=== PATIENT | female | born 1990 | race Caucasian/White ===

== ENCOUNTER 2017-02-27 18:16 | Emergency (ER) | payer OTHER ==
[2017-02-27 18:28] VITALS: BP 122/80; PULSE 89; RESP 20; TEMP 98.2
--- NOTE | 2017-02-27 18:34 | ED ---
General Adult HPI - General Chief complaint: Needlestick/Exposure Stated complaint: Needlestick-[facility] Time Seen by Provider: 02/27/17 18:24 Source: patient, RN notes reviewed Mode of arrival: ambulatory Limitations: no limitations - History of Present Illness Initial comments: 26-year-old female presents emergency Department chief complaint of needle stick to the right fifth digit. Patient states it happened at work today. Patient states that her tetanus. Patient states she cleaned it out and rinsed it. Denies any pain or discomfort at this time.Patient denies any recent fever , chills, shortness of breath, chest pain, back pain, abdominal pain, nausea vomiting, numbness or tingling, dysuria or hematuria, constipation or diarrhea, headaches or visual changes, or any other current symptoms. - Related Data Allergies Allergy/AdvReac Type Severity Reaction Status Date / Time No Known Allergies Allergy Verified 02/27/17 18:28 Review of Systems ROS Statement: Those systems with pertinent positive or pertinent negative responses have been documented in the HPI. ROS Other: All systems not noted in ROS Statement are negative. Past Medical History Past Medical History: No Reported History History of Any Multi-Drug Resistant Organisms: None Reported Past Surgical History: No Surgical Hx Reported Past Psychological History: No Psychological Hx Reported Smoking Status: Never smoker Past Alcohol Use History: Occasional Past Drug Use History: None Reported General Exam Limitations: no limitations General appearance: alert, in no apparent distress ENT exam: Present: normal exam, mucous membranes moist Neck exam: Present: normal inspection. Absent: tenderness, meningismus, lymphadenopathy Respiratory exam: Present: normal lung sounds bilaterally. Absent: respiratory distress, wheezes, rales, rhonchi, stridor Cardiovascular Exam: Present: regular rate, normal rhythm, normal heart sounds. Absent: systolic murmur, diastolic murmur, rubs, gallop, clicks Neurological exam: Present: alert, oriented X3 Skin exam: Present: warm, dry, normal color. Absent: intact (Patient is a fit of a needlestick injury to the left pinky finger on the palmar aspect in the proximal aspect), rash Course Vital Signs 02/27/17 18:23 Temperature 98.2 F Pulse Rate 89 Respiratory 20 Rate Blood Pressure 122/80 O2 Sat by Pulse 97 Oximetry Medical Decision Making - Medical Decision Making 26-year-old female presents for needlestick injury. This time we discussed care follow-up return parameters all patient's questions. She stated that she understood and she is given plan. All questions have been answered. She will be discharged. Disposition Clinical Impression: Needlestick injury of finger of right hand Disposition: HOME SELF-CARE Condition: Stable Instructions: Needle Stick Injuries (ED) Additional Instructions: Please use medication as discussed. Please follow up with family doctor if symptoms have not improved over the next two days. Please return to the emergency room if your symptoms increase or worsen or for any other concerns. Referrals: Lorin Davis MD [STAFF PHYSICIAN] - 1-2 days
[2017-02-27 20:01] LABS: Hepatitis C Virus IgG Ab Negative (Negative); Hepatitis C Virus IgG Index 0.04
[2017-02-28 18:17] LABS: Hepatitis B Surface Antibody Reactive (Non-Reactive)
== END 2017-02-27 18:53 | disposition home or self-care (01) ==
LOC: EC 18:16
DX: S69.91XA Unspecified injury of right wrist, hand and finger(s), initial encounter (principal); W46.0XXA Contact with hypodermic needle, initial encounter; Y92.69 Other specified industrial and construction area as the place of occurrence of the external cause
CPT/HCPCS: 36415; 86706; 86803; 87390; 99283

== ENCOUNTER 2020-07-14 14:12 | Emergency (ER) | payer OTHER ==
[2020-07-14] MEDS ORDERED: SODIUM CHLORIDE 0.9% 1,000 ML IV STA (14:32)
--- NOTE | 2020-07-14 14:38 | ED ---
Abdominal Pain HPI - General Chief Complaint: Abdominal Pain Stated Complaint: Pelvic pain Time Seen by Provider: 07/14/20 14:18 Source: patient Mode of arrival: ambulatory Limitations: no limitations - History of Present Illness Initial Comments: Patient is a 30-year-old female presenting to the emergency Department with complaints of left lower quadrant abdominal pain that started 3 days ago. Patient states the pain woke her up from sleep 3 days ago. She states it is been steady in the left lower quadrant, when she pushes in the area she gets an immense amount of pain, 9 out of 10. She states at rest right now is about a 5 out of 10. She does admit to some very mild nausea, no vomiting. She denies any fever or chills, no diarrhea. She's been having regular bowel movements. She states her appetite has been a little lower but she is able to still eating drink that. She denies history of abdominal surgeries. She's never had this kind of pain before. She has no further complaints at this time. Vital to the ER, her vital signs are stable. - Related Data Previous Rx's Medication Instructions Recorded Amoxicillin/Potassium Clav 1 tab PO BID 7 Days #14 tab 07/14/20 [Augmentin 875-125 Tablet] Allergies Allergy/AdvReac Type Severity Reaction Status Date / Time No Known Allergies Allergy Verified 07/14/20 14:16 Review of Systems ROS Statement: Those systems with pertinent positive or pertinent negative responses have been documented in the HPI. ROS Other: All systems not noted in ROS Statement are negative. Past Medical History Past Medical History: No Reported History History of Any Multi-Drug Resistant Organisms: None Reported Past Surgical History: No Surgical Hx Reported Past Psychological History: No Psychological Hx Reported Past Alcohol Use History: Occasional Past Drug Use History: None Reported General Exam - General Exam Comments Initial Comments: GENERAL: Patient is well-developed and well-nourished. Patient is nontoxic and in no acute distress. HEAD: Atraumatic, normocephalic. EYES: Pupils equal round and reactive to light, extraocular movements intact, sclera anicteric, conjunctiva are normal. Eyelids were unremarkable. ENT: TMs normal, nares patent, oropharynx clear without exudates. Moist mucous membranes. NECK: Normal range of motion, supple without lymphadenopathy or JVD. LUNGS: Unlabored respirations. Breath sounds clear to auscultation bilaterally and equal. No wheezes rales or rhonchi. HEART: Regular rate and rhythm without murmurs, rubs or gallops. ABDOMEN: patient is very tender in the left lower quadrant, positive guarding. Soft, normoactive bowel sounds. No masses appreciated. : Deferred MUSCULOSKELETAL: Normal extremities with adequate strength and normal range of motion, no pitting or edema. No clubbing or cyanosis. NEUROLOGICAL: Patient is alert and oriented x 3. Motor and sensory are also intact. Cranial nerves II through XII grossly intact. Symmetrical smile. Normal speech, normal gait. PSYCH: Normal mood, normal affect. SKIN: Warm, Dry, normal turgor, no rashes or lesions noted. Limitations: no limitations Course Vital Signs 07/14/20 14:14 Temperature 97.8 F Pulse Rate 92 Respiratory 16 Rate Blood Pressure 132/74 O2 Sat by Pulse 99 Oximetry Medical Decision Making - Medical Decision Making patient is a healthy 30-year-old female here for left lower quadrant pain that started 3 days ago. Patient denies any radiation. Her vital signs are stable, no fevers. Labs are all within normal limits, urine shows no evidence of infection, hCG is not detected. I did do a CT of the abdomen and pelvis secondary to patient being significantly tender in the left lower quadrant. CT shows mild uncomplicated acute colitis, left lower quadrant, this could be a product of diverticulitis although a diverticulum is not well seen at this time. Patient received some fluids. She declined any pain medicine at this time. I discussed these findings with her. Patient will be started on Augmentin for colitis versus diverticulitis. I will also send patient home with some Zofran as needed for any additional nausea. Patient is stable for discharge. Patient is in agreement with this plan of care. Return parameters were discussed with the patient and they verbalized understanding. Case discussed with Dr. Romero. - Lab Data Result diagrams: 07/14/20 14:48 07/14/20 14:48 Lab Results 07/14/20 07/14/20 07/14/20 Range/Units 14:48 14:48 14:48 WBC 10.1 (3.8-10.6) k/uL RBC 5.24 (3.80-5.40) m/uL Hgb 13.6 (11.4-16.0) gm/dL Hct 41.1 (34.0-46.0) % MCV 78.5 L (80.0-100.0) fL MCH 26.0 (25.0-35.0) pg MCHC 33.1 (31.0-37.0) g/dL RDW 13.0 (11.5-15.5) % Plt Count 248 (150-450) k/uL MPV 8.4 Neutrophils % 64 % Lymphocytes % 27 % Monocytes % 5 % Eosinophils % 2 % Basophils % 1 % Neutrophils # 6.5 (1.3-7.7) k/uL Lymphocytes # 2.7 (1.0-4.8) k/uL Monocytes # 0.6 (0-1.0) k/uL Eosinophils # 0.2 (0-0.7) k/uL Basophils # 0.1 (0-0.2) k/uL Sodium (137-145) mmol/L Potassium (3.5-5.1) mmol/L Chloride (98-107) mmol/L Carbon Dioxide (22-30) mmol/L Anion Gap mmol/L BUN (7-17) mg/dL Creatinine (0.52-1.04) mg/dL Est GFR (CKD-EPI)AfAm (>60 ml/min/1.73 sqM) Est GFR (CKD-EPI)NonAf (>60 ml/min/1.73 sqM) Glucose (74-99) mg/dL Plasma Lactic Acid Hakeem (0.7-2.0) mmol/L Calcium (8.4-10.2) mg/dL Total Bilirubin (0.2-1.3) mg/dL AST (14-36) U/L ALT (4-34) U/L Alkaline Phosphatase (38-126) U/L Total Protein (6.3-8.2) g/dL Albumin (3.5-5.0) g/dL Amylase (30-110) U/L Lipase (23-300) U/L Urine Color Light Yellow Urine Appearance Clear (Clear) Urine pH 6.0 (5.0-8.0) Ur Specific [place] 1.010 (1.001-1.035) Urine Protein Negative (Negative) Urine Glucose (UA) Negative (Negative) Urine Ketones Negative (Negative) Urine Blood Negative (Negative) Urine Nitrite Negative (Negative) Urine Bilirubin Negative (Negative) Urine Urobilinogen <2.0 (<2.0) mg/dL Ur Leukocyte Esterase Negative (Negative) Urine HCG, Qual Not Detected (Not Detectd) 07/14/20 07/14/20 Range/Units 14:48 14:48 WBC (3.8-10.6) k/uL RBC (3.80-5.40) m/uL Hgb (11.4-16.0) gm/dL Hct (34.0-46.0) % MCV (80.0-100.0) fL MCH (25.0-35.0) pg MCHC (31.0-37.0) g/dL RDW (11.5-15.5) % Plt Count (150-450) k/uL MPV Neutrophils % % Lymphocytes % % Monocytes % % Eosinophils % % Basophils % % Neutrophils # (1.3-7.7) k/uL Lymphocytes # (1.0-4.8) k/uL Monocytes # (0-1.0) k/uL Eosinophils # (0-0.7) k/uL Basophils # (0-0.2) k/uL Sodium 137 (137-145) mmol/L Potassium 4.0 (3.5-5.1) mmol/L Chloride 100 (98-107) mmol/L Carbon Dioxide 26 (22-30) mmol/L Anion Gap 11 mmol/L BUN 15 (7-17) mg/dL Creatinine 0.76 (0.52-1.04) mg/dL Est GFR (CKD-EPI)AfAm >90 (>60 ml/min/1.73 sqM) Est GFR (CKD-EPI)NonAf >90 (>60 ml/min/1.73 sqM) Glucose 98 (74-99) mg/dL Plasma Lactic Acid Hakeem 1.1 (0.7-2.0) mmol/L Calcium 10.2 (8.4-10.2) mg/dL Total Bilirubin 0.5 (0.2-1.3) mg/dL AST 33 (14-36) U/L ALT 25 (4-34) U/L Alkaline Phosphatase 72 (38-126) U/L Total Protein 8.5 H (6.3-8.2) g/dL Albumin 4.9 (3.5-5.0) g/dL Amylase 69 (30-110) U/L Lipase 175 (23-300) U/L Urine Color Urine Appearance (Clear) Urine pH (5.0-8.0) Ur Specific [place] (1.001-1.035) Urine Protein (Negative) Urine Glucose (UA) (Negative) Urine Ketones (Negative) Urine Blood (Negative) Urine Nitrite (Negative) Urine Bilirubin (Negative) Urine Urobilinogen (<2.0) mg/dL Ur Leukocyte Esterase (Negative) Urine HCG, Qual (Not Detectd) Disposition Clinical Impression: Left sided colitis Disposition: HOME SELF-CARE Condition: Stable Instructions (If sedation given, give patient instructions): Colitis (ED) Additional Instructions: Please return to the Emergency Department if symptoms worsen or any other concerns. Ct scan is consistent with colitis versus diverticulitis. Please take antibiotic as prescribed. Please drink plenty of fluids. May use Zofran for additional nausea. Please follow-up with your regular doctor. Prescriptions: Amoxicillin/Potassium Clav [Augmentin 875-125 Tablet] 1 tab PO BID 7 Days #14 ta b Is patient prescribed a controlled substance at d/c from ED?: No Referrals: None,Stated [Primary Care Provider] - 1-2 days Kimberly Ferreira MD [STAFF PHYSICIAN] - 1-2 days
[2020-07-14 15:10] LABS: Appearance,Urine Clear (Clear); Bilirubin,Urine Negative (Negative); Blood,Urine Negative (Negative); Color,Urine Light Yellow; Glucose,Urine (UA) Negative (Negative); Ketones,Urine Negative (Negative); Leukocyte Esterase,Urine Negative (Negative); Nitrite,Urine Negative (Negative); Protein,Urine Negative (Negative); Urobilinogen,Urine <2.0 mg/dL (<2.0)
[2020-07-14 15:14] LABS: ALT 25 U/L (4-34); AST 33 U/L (14-36); African American GFR (CKD) >90 (>60 ml/min/1.73 sqM); Albumin 4.9 g/dL (3.5-5.0); Alkaline Phosphatase 72 U/L (38-126); Amylase 69 U/L (30-110); Anion Gap 11 mmol/L; Basophils # (A) 0.1 k/uL (0-0.2); Basophils % (A) 1 %; Blood Urea Nitrogen 15 mg/dL (7-17); Calcium 10.2 mg/dL (8.4-10.2); Carbon Dioxide 26 mmol/L (22-30); Chloride 100 mmol/L (98-107); Eosinophils # (A) 0.2 k/uL (0-0.7); Eosinophils % (A) 2 %; Glucose 98 mg/dL (74-99); HCT 41.1 % (34.0-46.0); HGB 13.6 gm/dL (11.4-16.0); Lipase 175 U/L (23-300); Lymphocytes # (A) 2.7 k/uL (1.0-4.8); Lymphocytes % (A) 27 %; MCHC 33.1 g/dL (31.0-37.0); MCV 78.5 fL (80.0-100.0); Mean Platelet Volume 8.4; Monocytes # (A) 0.6 k/uL (0-1.0); Monocytes % (A) 5 %; Neutrophils # (A) 6.5 k/uL (1.3-7.7); Neutrophils % (A) 64 %; Non-African American GFR(CKD) >90 (>60 ml/min/1.73 sqM); Platelet Count 248 k/uL (150-450); RBC 5.24 m/uL (3.80-5.40); Sodium 137 mmol/L (137-145); Total Bilirubin 0.5 mg/dL (0.2-1.3); Total Protein 8.5 g/dL (6.3-8.2); WBC 10.1 k/uL (3.8-10.6)
--- NOTE | 2020-07-14 15:52 | CT ---
EXAMINATION TYPE: CT abdomen pelvis w con DATE OF EXAM: 07/14/2020 HISTORY: Abdominal pain localized left lower quadrant CT DLP: 1092mGycm Automated Exposure Control for Dose Reduction was Utilized. CONTRAST: CT scan of the abdomen and pelvis is performed without oral but with IV Contrast, patient injected wi th 100 mL of Isovue 300. COMPARISON: None. FINDINGS: LUNG BASES: No significant abnormality is appreciated. LIVER/GB: No significant abnormality is appreciated. PANCREAS: No significant abnormality is seen. SPLEEN: No significant abnormality is seen. ADRENALS: No significant abnormality is seen. KIDNEYS: Symmetric cortical medullary uptake and excretion without hydronephrosis seen bilaterally. BOWEL: Suboptimal evaluation without enteric contrast. Debris-filled stomach consistent with recent m eal ingestion. No suspicious small or large bowel dilatation. Normal-appearing appendix seen from bas e of cecum. Mvza-dn-ymycnvnz wall thickening in the left colon with mild ill-defined fluid and fat st randing left lower quadrant and upper pelvis. No free air. No well-formed fluid collection or abscess . Slightly redundant sigmoid colon. UTERUS/ADNEXA: Anteverted uterus. Both ovaries normal in size. LYMPH NODES: No greater than 1cm abdominal or pelvic lymph nodes are appreciated. OSSEOUS STRUCTURES: Disc herniation T11-T12 level mildly effaces the anterior thecal sac. OTHER: No significant additional abnormality is seen. IMPRESSION: Mild uncomplicated acute colitis Left lower quadrant near junction of left and sigmoid co ross, suspect possible product of diverticulitis though suspicious diverticulum not well-seen.
[2020-07-14] MEDS ORDERED: ONDANSETRON 4 MG ODT STARTER PACK 2 TAB BTL PO STA (16:07)
[2020-07-14 16:21] VITALS: BP 126/85; PULSE 84; RESP 18; TEMP 98.6
== END 2020-07-14 16:24 | disposition home or self-care (01) ==
LOC: EC 14:12
DX: K51.50 Left sided colitis without complications (principal)
CPT/HCPCS: 36415; 80053; 82150; 83605; 83690; 85025; 81003; 81025; 74177; 99284; 96360; S0119; Q9967

== ENCOUNTER → 2022-12-24 | Outpatient (CLI) | payer BC ==
[2022-12-24 15:59] LABS: Basophils # (A) 0.05 X 10*3/uL (0.00-0.10); Basophils % (A) 0.6 %; Eosinophils # (A) 0.23 X 10*3/uL (0.04-0.35); Eosinophils % (A) 2.9 %; HCT 40.2 % (37.2-46.3); HGB 12.6 d/dL (12.0-15.0); Lymphocytes # (A) 2.55 X 10*3/uL (0.90-5.00); Lymphocytes % (A) 32.2 %; MCH 25.5 pg (27.0-32.0); MCHC 31.3 d/dL (32.0-37.0); MCV 81.2 FL (80.0-97.0); Mean Platelet Volume 11.4 FL (9.5-12.2); Monocytes # (A) 0.56 X 10*3/uL (0.20-1.00); Monocytes % (A) 7.1 %; NRBC Per 100 WBC 0 X 10*3/uL (0.00-0.01); Neutrophils # (A) 4.53 X 10*3/uL (1.80-7.70); Neutrophils % (A) 57.1 %; Platelet Count 279 X 10*3/uL (140-440); RBC 4.95 X 10*6/uL (4.10-5.20); WBC 7.93 X 10*3/uL (4.50-10.00)
[2022-12-24 16:07] LABS: Blood Urea Nitrogen 11.9 mg/dL (9.0-27.0); Carbon Dioxide 24.5 mmol/L (21.6-31.8); Chloride 102 mmol/L (96-109); Glucose 100 mg/dL (70-110); Potassium 4.7 mmol/L (3.5-5.5); Sodium 137 mmol/L (135-145)
== END | disposition home or self-care (01) ==
LOC: LABWHC1 08:58
PROVIDERS: ATTEND Obstetrics & Gynecology
DX: Z01.812 Encounter for preprocedural laboratory examination (principal); N93.8 Other specified abnormal uterine and vaginal bleeding; N94.6 Dysmenorrhea, unspecified
CPT/HCPCS: 36415; 80051; 82565; 82947; 84520; 85025; 87086

== ENCOUNTER 2023-01-01 09:36 | Day surgery (SDC) | payer BC, OTHER ==
[2022-12-25 12:38] VITALS: BMI 33.8
--- NOTE | 2022-12-31 10:31 | P.HPOB ---
History of Present Illness H&P Date: 12/31/22 Chief Complaint: Abnormal uterine bleeding Ms. Otero is a 32 year old G0 with abnormal uterine bleeding and dysmenorrhea that began in 2014 and has progressively worsened. She has tried OCPs and combined hormonal patches but was unable to tolerate the side effects of mood s wings and irritability. Whilte discussing options for control of these painful, heavy periods she is not interested in the Mirena IUD because it is hormonal and she does not want to risk having any more mood effects. She is not interested in a uterine ablation because of the possibility that it may fail before she reaches menopause. She does not desire child-bearing and requests hysterectomy. Last pap smear on 11/18/2022 was NILM and HPV negative. Pelvic ultrasound on 11/21/2022 showed an anterverted, inhomogenous uterus measuring 5 x 3.7 x 8 cm. Endometrium was unremarkable. Bilateral ovaries appeared normal. Past medical history: None Past surgical history: None Medications: multivitamins, probiotics Allergies: latex Past Medical History Past Medical History: No Reported History Additional Past Medical History / Comment(s): HEAVY PAINFUL MENSES-TEND TO BE GETTING WORSE EVERY YEAR History of Any Multi-Drug Resistant Organisms: None Reported Past Surgical History: No Surgical Hx Reported Past Anesthesia/Blood Transfusion Reactions: No Reported Reaction Smoking Status: Never smoker - Past Family History Mother Family Medical History: No Reported History Medications and Allergies Home Medications Medication Instructions Recorded Confirmed Type No Known Home Medications 12/25/22 12/25/22 History Allergies Allergy/AdvReac Type Severity Reaction Status Date / Time latex Allergy ITCHING Verified 12/25/22 12:33 AND BLISTERS ON SKIN Exam Focused physical exam is performed. This is a healthy-appearing female in no apparent distress. She has non-labored breathing, is warm, and well-perfused. Abdomen is soft and non-distended. Extremities are non-tender and non-edematous. Assessment and Plan Assessment: 32 year old G0 who does not desires child-bearing and has a history of worsening AUB and dysmenorrhea presents for surgical management with Robotic Total Laparoscopic Hysterectomy, Bilateral Salpingectomy, and Cystoscopy. Plan: Risks, benefits, and alternatives to surgery were discussed including risk of bleeding, infection, damage to surrounding structures including bladder/bowels/ureters, risk of laparotomy, risk of oophorectomy, and risk of post-operative VTE. The patient understands these risks and desires to proceed with surgery. All questions answered. Time with Patient: Less than 30
[~2023-01-01 09:36] MED LIST: DEXAMETHASONE SOD PHOSPHATE 4 MG/ML 1 ML VIAL IV ONE; HYDROmorphone 0.5 MG/0.5 ML SYRINGE IVP PRN; LIDOCAINE 1% (10MG/ML) FOR IV START INTRADERMA PRN; ONDANSETRON 4 MG/2 ML VIAL IVP ONE; ONDANSETRON 4 MG/2 ML VIAL IVP PRN
[2023-01-01] MEDS: LACTATED RINGERS 1,000 ML IV SCH ×2 (09:55→22:47)
[2023-01-01] MEDS ORDERED: MIDAZOLAM 2 MG/2 ML VIAL IVP ONE (10:16)
[2023-01-01] MEDS ORDERED: fentaNYL (PF) 50 MCG/ML 2 ML AMP IVP ONE (10:16)
[2023-01-01] MEDS ORDERED: NALOXONE 0.4 MG/ML 1 ML VIAL IV PRN (10:41)
[2023-01-01] MEDS ORDERED: ONDANSETRON 4 MG/2 ML VIAL IVP PRN (10:41)
[2023-01-01] MEDS ORDERED: NALBUPHINE 10 MG/ML (10 ML MDV) IV PRN (10:41)
--- NOTE | 2023-01-01 10:41 | P.ANPRN ---
Procedure Note - Anesthesia - Epidural/Spinal Spinal Date of Procedure: 01/01/23 Procedure Start Time: 10:15 Procedure Stop Time: : Location of Patient: PreOp Indication: Acute Post-Operative Pain, Analgesia, Requested by Surgeon (Scarlett) Sedation Type: Sedate with meaningful contact maintained Preparation: Sterile Prep Position: Sitting Needle Guage: 25 Injectate: Duramorph 300 mcg/Fentanyl 25 mcg Blood Aspirated: No Pain Paresthesia on Injection Noted: No Events: Uneventful and Well Tolerated
[2023-01-01] MEDS ORDERED: NEOSTIGMINE 1 MG/ML 10 ML VIAL ONE (11:45)
[2023-01-01] MEDS ORDERED: fentaNYL (PF) 50 MCG/ML 2 ML AMP ONE (11:45)
[2023-01-01] MEDS ORDERED: ROCURONIUM 10 MG/ML (5 ML VIAL) IV ONE (11:45)
[2023-01-01] MEDS ORDERED: MORPHINE SULFATE (PF) 0.3 MG/0.3 ML SYR ONE (11:45)
[2023-01-01] MEDS ORDERED: PROPOFOL 10 MG/ML 20 ML VIAL IV ONE (11:45)
[2023-01-01] MEDS ORDERED: GLYCOPYRROLATE 0.2 MG/ML 2 ML VIAL ONE (11:45)
[2023-01-01] MEDS ORDERED: SUCCINYLCHOLINE CHLORIDE 200 MG/10 ML VIAL IV ONE (11:45)
[2023-01-01] MEDS ORDERED: MIDAZOLAM 2 MG/2 ML VIAL ONE (11:45)
[2023-01-01] MEDS ORDERED: AZITHROMYCIN 500 MG in SODIUM CHLORIDE 0.9% 250 ML IVPB STA (12:06)
[2023-01-01] MEDS ORDERED: metroNIDAZOLE-NS PMX 500 MG in SALINE 1 100ML.BAG IVPB STA (12:16)
[2023-01-01] MEDS ORDERED: BUPIVACAINE (PF) 0.25% 30 ML VIAL SQ ONE ×2 (12:29→13:36)
[2023-01-01] MEDS ORDERED: LACTATED RINGERS 1,000 ML IV ONE (13:00)
[2023-01-01] MEDS ORDERED: KETOROLAC 15 MG/ML 1 ML VIAL IVP PRN (13:51)
[2023-01-01] MEDS ORDERED: SIMETHICONE 80 MG CHEWABLE PO PRN (13:51)
--- NOTE | 2023-01-01 14:01 | P.OP ---
Date of Procedure: 01/01/23 Preoperative Diagnosis: 1. Abnormal Uterine Bleeding 2. Dysmenorrhea Postoperative Diagnosis: Same Procedure(s) Performed: Robotic Total Laparoscopic Hysterectomy, Bilateral Salpingectomy, and Cystoscopy Implants: None Anesthesia: JANA Surgeon: Nikia Pantoja Director [employer]: [facility] Estimated Blood Loss (ml): 25 IV fluids (ml): 1,000 Urine output (ml): 500 (clear) Indications for Procedure: Ms. Otero is a 32 year old G0 with abnormal uterine bleeding and dysmenorrhea that began in 2014 and has progressively worsened. She has tried OCPs and combined hormonal patches but was unable to tolerate the side effects of mood swings and irritability. Whilte discussing options for control of these painful, heavy periods she is not interested in the Mirena IUD because it is hormonal and she does not want to risk having any more mood effects. She is not interested in a uterine ablation because of the possibility that it may fail before she reaches menopause. She does not desire child-bearing and requests hysterectomy. Risks, benefits, and alternatives to surgery were discussed including risk of bleeding, infection, damage to surrounding structures including bladder/bowels/ureters, risk of laparotomy, risk of oophorectomy, and risk of po st-operative VTE. The patient understands these risks and desires to proceed with surgery. All questions answered. Operative Findings: Normal-appearing uterus, bilateral fallopian tubes, and ovaries. Small filmy bowel adhesions to left pelvic side wall. Otherwise, unremarkable pelvis. On cystoscopy, no bladder trauma or injury was noted, bilateral ureteral efflux noted, and no foreign bodies in the bladder. Description of Procedure: Prior to the beginning of the procedure, the team paused to verify the patients identity, the procedure to be performed (in accordance with the consent,) and the correct side/site. The patient was positioned appropriately. All relevant images and results were properly labeled and displayed. We addressed antibiotic prophylaxis and fluids for irrigation as applicable to this patient. Any safety precautions were addressed. The patient was taken to the operating room where general anesthesia was induced without difficulty. She was then positioned in the dorsal lithotomy position in [facility]. Positioning included placing her arms at her sides. After the patient was placed in what was felt to be a ne urologically safe position, deep Trendelenburg position was tested prior to the operative procedure, to ensure that she would not move on the operating table. The patient was then prepped and draped in the normal sterile fashion for a combined abdominovaginal surgery. A Guerrero catheter was placed in the bladder for continuous drainage. Uterus was sounded to 8 cm. V-Care manipulator was placed in the uterus for manipulation. Attention was then placed to the abdomen. The normal length Veress needle was introduced into the abdominal cavity while tenting the abdominal wall. Low pressure was noted confirming appropriate placement. The abdomen was then insufflated to 15mmHg for the remainder of the case. The Veress needle was removed, and an 8 mm port was placed at the umbilical site under direct laparscopic visualization and there was no evidence of injury from the trocar placement. Visualization of the intraabdominal cavity showed normal pelvic anatomy. Small, filmy adhesions between the colon and left pelvic side wall were noted. The port sites for the remainder of the case were then measured out and placed under direct visualization. On the right side, one 8 mm robotic assist port and one 10 mm assist port were placed. On the left side, one 8 mm robotic port was placed. The Roundboxi robot was then brought to the operative field in a lateral docking style to the left of the patient and the robot was docked to the ports. All robotic instruments were brought into the pelvis under direct visualization with monopolar scissors in arm #3 and vessel sealer in arm #1. Bilateral ureters were visualized prior to starting the surgery. The right fallopian tube was grasped, cauterized, and cut sequentially to the level of the uterine cornua with the vessel sealer. The right uteroovarian ligement was cauterized and cut. The right round ligament was cauterized and cut. Broad ligament was opened and bladder flap created. This was repeated on the left side. The peritoneum of the bilateral broad ligaments was then taken down and monopolar cautery used to skeletonize the uterine arteries bilaterally. During the course of this dissection, the anterior leaf of the broad ligament was also taken down over the anterior aspect of the uterus and cervix to create a bladder flap. The bladder was then dissected off the cervix and upper vagina with the monopolar scissors and gentle blunt dissection. The bilateral uterine arteries were then cauterized and divided at the level of the internal cervical os. The monopolar cautery was used to incise the vaginal cuff. The uterus, along with the cervix was removed vaginally. Cuff was closed in with 0-Stratifix sutures. Excellent hemostasis was noted at this time. A 70 degree cystoscopy was performed which confirmed no suture placement within the bladder, no trauma to the bladder. Good efflux was noted from both ureteric orifices. The robot was undocked from the trocars and brought out of the operative field. The remainder of the ports were removed, and the gas was allowed to escape. All skin incisions were closed with 4-0 Monocryl and dermabond. Hemostasis was noted to be excellent throughout, and final sponge, instrument, and needle count was noted to be correct. The patient was moved back to the preoperative holding area in stable condition having tolerated the procedure well.
--- NOTE | 2023-01-02 07:13 | P.PN ---
Progress Note - Text Progress Note Date: 01/02/23 Postoperative day 1 status post robotic hysterectomy anesthesia, and intrathecal morphine given for postoperative analgesia, patient doing well, there is no anesthesia related complications, Patient had no headache, vital signs stable , Assessment and plan= postop day 1 status post robotic hysterectomy, doing well there is no anesthesia related complication.
[2023-01-02 07:32] VITALS: RESP 16
[2023-01-02 07:34] VITALS: BP 103/65; PULSE 64; TEMP 97.9
--- NOTE | 2023-01-02 10:17 | P.PN ---
Subjective Progress Note Date: 01/02/23 Principal diagnosis: s/p Robotic Assisted Total Laparoscopic Hysterectomy Patient doing well this morning, no complaints, no acute events overnight. She desires discharge home today. She is ambulating without difficulty or lightheadedness. She is voiding without difficulty. She denies vaginal spotting or bleeding. She is passing flatus. Pain is well controlled with medications. She denies fevers, chills, chest pain, shortness of breath, pain/swelling in the legs. Objective - Vital Signs Vital signs: Vital Signs Temp 97.9 F 01/02/23 07:10 Pulse 64 01/02/23 07:10 Resp 16 01/02/23 07:10 BP 103/65 01/02/23 07:10 Pulse Ox 99 01/02/23 07:10 FiO2 Intake & Output 01/01/23 01/02/23 01/02/23 18:59 06:59 18:59 Intake Total 1800 240 Output Total 1225 650 Balance 575 -410 Weight 83.8 kg Intake: IV 1800 Oral 240 Output: Urine 1200 650 Estimated Blood Loss 25 - Exam Focused physical exam is performed. Patient is healthy-appearing, has non- labored breathing, is conversing normally. Abdomen is soft, non-tender. Incisions are clean, dry, and intact x4. Extremities are non-tender, non- edematous. Assessment and Plan Assessment: 32 year old G0 who does not desires child-bearing and has a history of worsening AUB and dysmenorrhea now POD#1 s/p Robotic Total Laparoscopic Hysterectomy, Bilateral Salpingectomy, and Cystoscopy. Plan: Patient meeting all post-operative milestones appropriately. Will discharge home today. Time with Patient: Less than 30 (15 minutes)
--- NOTE | 2023-01-02 10:22 | P.DS ---
Providers Date of admission: 01/02/2023 Expected date of discharge: 01/02/23 Attending physician: Nikia Pantoja MD Primary care physician: Stated None Hospital Course: This is a 32 year old G0 POD#1 s/p Robotic Total Laparoscopic Hysterectomy, Bilateral Salpingectomy, and Cystoscopy for AUB and dysmenorrhea, unable to tolerate hormonal treatments. She is doing well this morning and has no complaints. Pain is well controlled with the medications. She desires discharge home today. She is meeting all post-operative milestones as expected. I discussed post-operative restrictions with the patient including no heavy lifting more than 15 pounds for 6 weeks and pelvic rest for 6 weeks. Encouraged patient to call the office for any fevers, chills, worsening pain, heavy vaginal bleeding, foul-smelling vaginal discharge, or any other concerns. All questions answered. Patient to follow up in 2 weeks for post-operative exam. Assessment: 32 year old G0 POD#1 s/p Robotic Total Laparoscopic Hysterectomy, Bilateral Salpingectomy, and Cystoscopy for AUB and dysmenorrhea, unable to tolerate hormonal treatments. Patient Condition at Discharge: Good Plan - Discharge Summary Discharge Rx Participant: Yes New Discharge Prescriptions: New Ibuprofen [Motrin] 600 mg PO Q6HR PRN #30 tab PRN Reason: Mild Pain (Scale 1 To 3) Acetaminophen Tab [Tylenol] 650 mg PO Q6H PRN #30 tab PRN Reason: Mild Pain (Scale 1 To 3) Discharge Medication List Acetaminophen Tab [Tylenol] 650 mg PO Q6H PRN #30 tab 01/02/23 [Rx] Ibuprofen [Motrin] 600 mg PO Q6HR PRN #30 tab 01/02/23 [Rx] Follow up Appointment(s)/Referral(s): Nikia Pantoja MD [STAFF PHYSICIAN] - 2 Weeks Patient Instructions/Handouts: Laparoscopic Hysterectomy (DC) Activity/Diet/Wound Care/Special Instructions: No heavy lifting more than 15 pounds for 6 weeks, pelvic rest for 6 weeks Discharge Disposition: HOME SELF-CARE
[2023-01-02] MEDS ORDERED: ACETAMINOPHEN TAB 325 MG TAB PO PRN (13:52)
[2023-01-02 17:52] LABS: Basophils # (A) 0.02 X 10*3/uL (0.00-0.10); Basophils % (A) 0.1 %; Eosinophils # (A) 0.04 X 10*3/uL (0.04-0.35); Eosinophils % (A) 0.3 %; HCT 35.1 % (37.2-46.3); HGB 11.2 d/dL (12.0-15.0); Lymphocytes # (A) 2.99 X 10*3/uL (0.90-5.00); Lymphocytes % (A) 21.5 %; MCH 25.7 pg (27.0-32.0); MCHC 31.9 d/dL (32.0-37.0); MCV 80.7 FL (80.0-97.0); Mean Platelet Volume 11.8 FL (9.5-12.2); Monocytes # (A) 0.78 X 10*3/uL (0.20-1.00); Monocytes % (A) 5.6 %; NRBC Per 100 WBC 0 X 10*3/uL (0.00-0.01); Neutrophils # (A) 10.06 X 10*3/uL (1.80-7.70); Neutrophils % (A) 72.2 %; Platelet Count 270 X 10*3/uL (140-440); RBC 4.35 X 10*6/uL (4.10-5.20); RDW 13.2 % (11.5-14.5); WBC 13.93 X 10*3/uL (4.50-10.00)
== END 2023-01-02 12:51 | disposition home or self-care (01) ==
LOC: OR 09:36 → 5NMEDONC 13:49 → OR 01-02 12:51
PROVIDERS: ATTEND Obstetrics & Gynecology
DX: N87.9 Dysplasia of cervix uteri, unspecified (principal); N94.6 Dysmenorrhea, unspecified; N72 Inflammatory disease of cervix uteri; N92.0 Excessive and frequent menstruation with regular cycle; Z91.040 Latex allergy status
CPT/HCPCS: 58571; S2900; 81025; 85025; 86850; 86900; 86901; 88307

== ENCOUNTER 2024-09-16 09:34 | Day surgery (SDC) | payer BC ==
[2024-09-11 15:15] VITALS: BMI 28.1
[~2024-09-16 09:34] MED LIST changes: -DEXAMETHASONE SOD PHOSPHATE 4 MG/ML 1 ML VIAL IV ONE; -HYDROmorphone 0.5 MG/0.5 ML SYRINGE IVP PRN; +LACTATED RINGERS 1,000 ML IV SCH; -LIDOCAINE 1% (10MG/ML) FOR IV START INTRADERMA PRN; -ONDANSETRON 4 MG/2 ML VIAL IVP ONE; -ONDANSETRON 4 MG/2 ML VIAL IVP PRN
[2024-09-16] MEDS: IV FLUID CONTINUATION 1,000 ML IV ONE (09:53)
[2024-09-16 10:02] VITALS: RESP 16; TEMP 97.8
[2024-09-16 10:09] LABS: Glucose,Whole Blood 88 mg/dL (70-110)
[2024-09-16] MEDS ORDERED: PROPOFOL 10 MG/ML 20 ML VIAL IV ONE (10:34)
--- NOTE | 2024-09-16 10:47 | P.PCN ---
Date of Procedure: 09/16/24 Procedure(s) Performed: BRIEF HISTORY: Patient is a 34-year-old pleasant white female scheduled for an elective colonoscopy as a part of evaluation of intermittent rectal bleeding.' PROCEDURE PERFORMED: Colonoscopy. PREOPERATIVE DIAGNOSIS: Intermittent rectal bleed. IV sedation per Anesthesia. PROCEDURE: After informed consent was obtained, the patient, was brought into the endoscopy unit. IV sedation was administered by Anesthesia under continuous monitoring. Digital rectal examination was normal. Initially the Olympus CF-160 flexible video colonoscope was then inserted in the rectum, gradually advanced into the cecum without any difficulty. Careful examination was performed as the scope was gradually being withdrawn. Ileocecal valve and the appendiceal orifice were visualized and appeared normal. Prep was excellent. Mucosa of the cecum, ascending colon, transverse colon, descending colon, sigmoid colon, and rectum appeared normal. Retroflexion was performed in the rectum and no lesions were seen. The patient tolerated the procedure well. IMPRESSION: Normal-appearing colon from rectum to cecum with no evidence of colorectal neoplasia. RECOMMENDATIONS: Findings of this examination were discussed with the patient as well as her family. She was advised to be on high-fiber diet and fiber supplements on a regular basis. Recommended repeat screening colonoscopy in 10 years..
[2024-09-16 11:37] VITALS: BP 96/62; PULSE 64
== END 2024-09-16 11:51 | disposition home or self-care (01) ==
LOC: ORWHC2ENDO 09:34
PROVIDERS: ATTEND Internal Medicine Gastroenterology
DX: K62.5 Hemorrhage of anus and rectum (principal)
CPT/HCPCS: 45378; J2704